=== PATIENT | female | born 1955 | race Caucasian/White ===

== ENCOUNTER 2018-06-30 09:35 | Outpatient (CLI) | payer OTHER ==
[2018-06-30] MEDS ORDERED: Gadobenate Dimeglumine 529 MG/1 ML (20ML VIAL) ONE (11:01)
--- NOTE | 2018-06-30 14:22 | MRI ---
MRI BRAIN WITH AND WITHOUT CONTRAST: [facility]ella protocol DATE: 06/30/2018 HISTORY: 62-year-old female follow-up pituitary tumor COMPARISON: 06/22/2015, 04/07/2013, 04/08/2012, 03/06/2011, and 07/03/2010. FINDINGS: The ventricles are normal in size and configuration. There is no major intraaxial signal abnormality, restricted diffusion, abnormal intraaxial enhancement, mass, midline shift or any other mass effect, recent intraaxial hemorrhage, or extraaxial fluid collection. There are few tiny scattered fo ci of T2 hyperintensity in the cerebral white matter consistent with minimal/mild chronic ischemic white matter changes due to microvascular atherosclerosis, similar to prior studies. The 03/28/10 MRI showed an intrasellar mass with moderate enhancement, mildly superiorly bulging of t he diaphragma sellae, encroaching upon the suprasellar cistern; and a greater degree of inferior intraosseous invasion of the tumor mass into the basisphenoid. The subsequent series of MRIs at [facility] show very slow interval decrease in size of the intrasellar tumor component, and progressively decreasing enhancement of the intraosseous component in the sphenoid bone. Although the interval change between each MRI from year to year is difficult to appreciate, the cumulative changes are noted to be more significant when all of the prior studies are viewed in series. Currentl y, the diaphragma sellae has a concave superior margin, with no encroachment upon the suprasellar cistern. The intrasellar component of the mass has heterogeneous signal, and is small. There is perip heral mild enhancement of the inferior aspect of the predominantly cystic intraosseous sphenoid component of the mass. There has been no major interval change since 06/22/2015. Bilateral cavernous s inuses are normal. The optic chiasm is normal. Again noted are the bilateral mastoid effusions, right greater than left, unchanged since 06/22/2015. IMPRESSION: 1. 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 2. The tumor has been progressively slowly involuting over the past several years. 3. The progression of the involution is difficult to appreciate between adjacent years, but the cumul ative involution is more apparent when the series of MRIs are viewed together. 4. No significant interval change since 06/22/2015. 5. Bilateral mastoid effusions. 6. The brain is essentially normal.
== END 2018-06-30 09:36 | disposition home or self-care (01) ==
LOC: BICMRI 09:35
PROVIDERS: ATTEND Neurological Surgery
DX: D49.6 Neoplasm of unspecified behavior of brain (principal); D35.2 Benign neoplasm of pituitary gland; H74.8X3 Other specified disorders of middle ear and mastoid, bilateral
CPT/HCPCS: 70553; 82565; A9577

== ENCOUNTER 2020-10-10 13:25 | Outpatient (CLI) | payer OTHER | END 2020-10-10 13:26 | disposition home or self-care (01) | LOC: BICMAMMO 13:25 | PROVIDERS: ATTEND Family Medicine | DX: Z12.31 Encounter for screening mammogram for malignant neoplasm of breast (principal); R92.1 Mammographic calcification found on diagnostic imaging of breast | CPT/HCPCS: 77063; 77067 ==

== ENCOUNTER 2020-10-31 08:19 | Outpatient (CLI) | payer OTHER | END 2020-10-31 08:20 | disposition home or self-care (01) | LOC: BICMAMMO 08:19 | PROVIDERS: ATTEND Family Medicine | DX: R92.8 Other abnormal and inconclusive findings on diagnostic imaging of breast (principal); R92.1 Mammographic calcification found on diagnostic imaging of breast | CPT/HCPCS: G0279 ==

== ENCOUNTER 2021-10-11 12:18 | Outpatient (CLI) | payer OTHER | END 2021-10-11 12:19 | disposition home or self-care (01) | LOC: BICMAMMO 12:18 | PROVIDERS: ATTEND Family Medicine | DX: Z12.31 Encounter for screening mammogram for malignant neoplasm of breast (principal); Z85.3 Personal history of malignant neoplasm of breast | CPT/HCPCS: 77063; 77067 ==

== ENCOUNTER 2022-12-11 14:10 | Outpatient (CLI) | payer MEDICARE, OTHER | END 2022-12-11 14:11 | disposition home or self-care (01) | LOC: BICMAMMO 14:10 | PROVIDERS: ATTEND Family Medicine | DX: Z12.31 Encounter for screening mammogram for malignant neoplasm of breast (principal); M81.0 Age-related osteoporosis without current pathological fracture; M85.88 Other specified disorders of bone density and structure, other site | CPT/HCPCS: 77063; 77067; 77080 ==